=== PATIENT | male | born 1985 | race African-American/Black ===

== ENCOUNTER 2017-01-15 09:07 | Emergency (ER) | payer MEDICAID ==
[~2017-01-15] VITALS: Ht 175.3 cm; Wt 56.8 kg
[2017-01-15] MEDS ORDERED: INHALER PO (09:19)
[2017-01-15 09:23] VITALS: BP 140/88
[2017-01-15] MEDS ORDERED: TETANUS/DIPHTHERIA TOXOID [ADULT] 0.5 ML SYRINGE IM ONE (10:45)
== END 2017-01-15 10:59 | disposition home or self-care (01) ==
LOC: EMS 09:08
DX: T65.91XA Toxic effect of unspecified substance, accidental (unintentional), initial encounter (principal); S00.81XA Abrasion of other part of head, initial encounter; F17.210 Nicotine dependence, cigarettes, uncomplicated; Z02.89 Encounter for other administrative examinations; W51.XXXA Accidental striking against or bumped into by another person, initial encounter; Y93.02 Activity, running; Y99.8 Other external cause status; Y92.89 Other specified places as the place of occurrence of the external cause
CPT/HCPCS: 90471; 90714; 99283

== ENCOUNTER 2017-10-18 14:36 | Emergency (ER) | payer MEDICAID ==
[~2017-10-18] VITALS: Ht 175.3 cm; Wt 63.5 kg
[~2017-10-18 14:36] MED LIST: INHALER PO
[2017-10-18] MEDS ORDERED: PERTUSS(ACELL),DIPH,TET VAC/PF 0.5 ML VIAL IM ONE (15:15)
[2017-10-18 16:09] VITALS: BP 115/82
== END 2017-10-18 16:12 | disposition home or self-care (01) ==
LOC: EMS 14:40
DX: R07.9 Chest pain, unspecified (principal); M25.511 Pain in right shoulder; M25.512 Pain in left shoulder; F19.10 Other psychoactive substance abuse, uncomplicated; F17.210 Nicotine dependence, cigarettes, uncomplicated
CPT/HCPCS: 90471; 90715; 99283